=== PATIENT | female | born 1995 | race African-American/Black ===

== ENCOUNTER 2018-04-29 07:03 | Emergency (ER) | payer OTHER ==
[~2018-04-29] VITALS: Ht 167.6 cm; Wt 59.6 kg
[2018-04-29] MEDS ORDERED: ZOFRAN4 MG PO (08:18)
[2018-04-29 08:25] VITALS: BP 105/69
== END 2018-04-29 08:25 | disposition home or self-care (01) ==
LOC: EME 07:03
DX: S00.83XA Contusion of other part of head, initial encounter (principal); S00.511A Abrasion of lip, initial encounter; S06.0X0A Concussion without loss of consciousness, initial encounter; V74.6XXA Passenger on bus injured in collision with heavy transport vehicle or bus in traffic accident, initial encounter; Y92.410 Unspecified street and highway as the place of occurrence of the external cause; R11.0 Nausea
CPT/HCPCS: 70450; 99281; 99283